=== PATIENT | female | born 1950 | race Caucasian/White ===

== ENCOUNTER 2020-07-19 20:12 | Inpatient (IN) | payer MEDICARE, MEDICAID ==
[~2020-07-19] VITALS: Ht 165.1 cm; Wt 130.6 kg
[2020-07-19 23:02] LABS: HEMATOCRIT. 28.1 % (36.0-48.0); HEMOGLOBIN. 8.7 g/dL (12.0-16.0); MEAN CORPUSCULAR HEMOGLOBIN 33.6 pg (28.0-32.0); MEAN CORPUSCULAR VOLUME 108.8 fL (81.0-99.0); PLATELET 307 x1000/uL (130-400); RED BLOOD CELL COUNT 2.59 mill/uL (4.2-5.4); RED CELL DISTRIBUTION WIDTH 18.8 % (11.6-14.6)
[2020-07-19 23:03] LABS: COLOR URINE DK YELLOW (YELLOW); KETONES URINE 1+ (NEGATIVE); LEUKOCYTE ESTERASE URINE NEGATIVE (NEGATIVE); NITRITE URINE NEGATIVE (NEGATIVE); OCCULT BLOOD URINE NEGATIVE (NEGATIVE); PROTEIN URINE 1+ (NEGATIVE); SPECIFIC GRAVITY URINE 1.024 (1.005-1.030)
[2020-07-19 23:04] LABS: CLARITY URINE SLIGHTLY HAZY (CLEAR)
[2020-07-19 23:29] LABS: PLATELET ESTIMATE NORMAL
[2020-07-19 23:59] LABS: CHLORIDE 109 mEq/L (98-107)
[2020-07-20 00:06] LABS: INR 1.2; PROTHROMBIN TIME 12.2 sec (9.6-11.0)
[2020-07-20 09:00] VITALS: BP 165/97
[2020-07-20] MEDS ORDERED: ACETAMINOPHEN 650MG SUPP PR PRN ×2 (09:15)
[2020-07-20] MEDS ORDERED: MAGNESIUM/ALUMINUM HYDROXIDE/SIMETHICONE 30ML UDC PO PRN (09:15)
[2020-07-20] MEDS ORDERED: NA PHOS,M-B/NA PHOS,DI-BA ENEMA 118ML PR PRN (09:15)
[2020-07-20] MEDS ORDERED: CLONIDINE 0.1MG TABLET PO PRN (09:15)
[2020-07-20] MEDS ORDERED: ACETAMINOPHEN 650MG/20.3ML UDC GT PRN ×2 (09:15)
[2020-07-20] MEDS ORDERED: DIPHENHYDRAMINE 50MG/ML VIAL IV PRN (09:15)
[2020-07-20] MEDS ORDERED: CLON0.1T MT (11:37)
[2020-07-20] MEDS ORDERED: CARV3.1242 MT (11:37)
[2020-07-20] MEDS ORDERED: HYDR-4133 MT (11:37)
[2020-07-20 12:00] VITALS: BP 115/70
[2020-07-20] MEDS ORDERED: ENOXAPARIN 40MG/0.4ML SYR SUBCUT SCH (14:00)
[2020-07-20] MEDS: MENTHOL/LANOLIN/CALAMINE/ZN OX OINT 71GM TOP SCH (14:06)
[2020-07-20] MEDS: LIDOCAINE 5% PATCH TOP SCH (14:08)
[2020-07-20] MEDS: ENOXAPARIN 30MG/0.3ML SYR SUBCUT SCH (14:09)
[2020-07-20] MEDS ORDERED: SODIUM CHLORIDE 0.9% 1000ML BAG (SEPSIS BOLUS) IV ONE (15:15)
[2020-07-20 16:00] VITALS: BP 146/79
[2020-07-20] MEDS ORDERED: SODIUM CHLORIDE 0.9% 500 ML IV NR (16:15)
[2020-07-20] MEDS: HYDROCODONE/ACETAMINOPHEN 10/325MG TABLET PO PRN ×2 (17:01→23:00)
[2020-07-20] MEDS ORDERED: VANCOMYCIN 2,000 MG in DEXT 5% WATER 500 ML IV NR ×2 (18:00→20:00)
[2020-07-20] MEDS ORDERED: PIPERACILLIN/TAZOBACTAM 2.25 G in DEXTROSE 5% WATER 50 ML IV SCH (18:00)
[2020-07-20] MEDS: PIPERACILLIN/TAZOBACTAM 3.375 G in DEXT 5% WATER 100 ML IV SCH (18:19)
[2020-07-20 20:00] VITALS: BP 149/71
[2020-07-20] MEDS: CARVEDILOL 6.25 MG TABLET PO SCH (20:28)
[2020-07-20] MEDS: ACETAMINOPHEN 325MG TABLET PO PRN (22:12)
[2020-07-21] VITALS: BP 123/76
[2020-07-21] MEDS: ENOXAPARIN 30MG/0.3ML SYR SUBCUT SCH (01:02)
[2020-07-21] MEDS: MENTHOL/LANOLIN/CALAMINE/ZN OX OINT 71GM TOP SCH ×2 (01:02→13:18)
[2020-07-21] MEDS: PIPERACILLIN/TAZOBACTAM 3.375 G in DEXT 5% WATER 100 ML IV SCH ×5 (01:02→23:30)
[2020-07-21 04:00] VITALS: BP 129/67
[2020-07-21 08:00] VITALS: BP 138/79
[2020-07-21] MEDS: LIDOCAINE 5% PATCH TOP SCH (08:39)
[2020-07-21] MEDS: CARVEDILOL 6.25 MG TABLET PO SCH ×2 (08:40→21:08)
[2020-07-21] MEDS: HYDROCODONE/ACETAMINOPHEN 10/325MG TABLET PO PRN ×2 (08:40→21:08)
[2020-07-21 12:00] VITALS: BP 138/66
[2020-07-21] MEDS ORDERED: IPRATROPIUM/ALBUTEROL 0.5-3(2.5)MG/3ML NEB HHN PRN (12:45)
[2020-07-21] MEDS: MULTIVITAMINS,THER W-MINERALS TABLET PO SCH (13:18)
[2020-07-21] MEDS: THIAMINE HCL 100MG TABLET PO SCH (13:18)
[2020-07-21] MEDS: FOLIC ACID/VITAMIN B COMP W-C TABLET PO SCH (13:18)
[2020-07-21] MEDS: VANCOMYCIN 1 G PREMIX 200 ML IV SCH (14:28)
[2020-07-21 16:00] VITALS: BP 113/86
[2020-07-21 17:34] LABS: BASOPHILS % 0.3 % (0.0-2.0); EOSINOPHILS % 1.2 % (0.0-5.0); LYMPHOCYTES % 9.9 % (20.0-50.0); MEAN CORPUSCULAR HEMOGLOBIN 33.3 pg (28.0-32.0); MEAN CORPUSCULAR VOLUME 108.4 fL (81.0-99.0); MEAN PLATELET VOLUME 8.6 fl (7.4-10.4); MONOCYTES % 13.3 % (2.0-8.0); NEUTROPHILS % 75.3 % (40.0-76.0); PLATELET 330 x1000/uL (130-400); RED BLOOD CELL COUNT 1.89 mill/uL (4.2-5.4); RED CELL DISTRIBUTION WIDTH 18.7 % (11.6-14.6)
[2020-07-21 17:36] LABS: CHLORIDE 107 mEq/L (98-107)
[2020-07-21 17:41] LABS: HEMATOCRIT. 20.5 % (36.0-48.0); HEMOGLOBIN. 6.3 g/dL (12.0-16.0)
[2020-07-21] MEDS ORDERED: ACETAMINOPHEN 325MG TABLET PO ONE (18:45)
[2020-07-21] MEDS ORDERED: DIPHENHYDRAMINE 25MG CAPSULE PO ONE (18:45)
[2020-07-21 20:00] VITALS: BP 154/81
[2020-07-21] MEDS ORDERED: VANCOMYCIN 1250MG in DEXTROSE 5% WATER 250ML IV SCH (20:00)
[2020-07-21] MEDS: IPRATROPIUM/ALBUTEROL 0.5-3(2.5)MG/3ML NEB HHN SCH (20:25)
[2020-07-21] MEDS: ENOXAPARIN 40MG/0.4ML SYR SUBCUT SCH (21:08)
[2020-07-22] VITALS (14 sets, daily range): BP systolic 114–139; BP diastolic 56–78
[2020-07-22] MEDS: VANCOMYCIN 1 G PREMIX 200 ML IV SCH ×2 (00:27→12:31)
[2020-07-22] MEDS: IPRATROPIUM/ALBUTEROL 0.5-3(2.5)MG/3ML NEB HHN SCH ×4 (01:40→21:33)
[2020-07-22] MEDS: ACETAMINOPHEN 325MG TABLET PO PRN (01:41)
[2020-07-22] MEDS: MENTHOL/LANOLIN/CALAMINE/ZN OX OINT 71GM TOP SCH ×2 (01:46→13:00)
[2020-07-22] MEDS: PIPERACILLIN/TAZOBACTAM 3.375 G in DEXT 5% WATER 100 ML IV SCH ×3 (08:20→21:23)
[2020-07-22] MEDS: MULTIVITAMINS,THER W-MINERALS TABLET PO SCH (08:20)
[2020-07-22] MEDS: CARVEDILOL 6.25 MG TABLET PO SCH ×2 (08:20→21:22)
[2020-07-22] MEDS: FOLIC ACID/VITAMIN B COMP W-C TABLET PO SCH (08:20)
[2020-07-22] MEDS: THIAMINE HCL 100MG TABLET PO SCH (08:21)
[2020-07-22] MEDS: ENOXAPARIN 40MG/0.4ML SYR SUBCUT SCH (09:00)
[2020-07-22] MEDS: LIDOCAINE 5% PATCH TOP SCH (09:06)
[2020-07-22] MEDS: HYDROCODONE/ACETAMINOPHEN 10/325MG TABLET PO PRN ×2 (10:48→18:44)
[2020-07-22 15:20] LABS: CHLORIDE 107 mEq/L (98-107)
[2020-07-22 16:51] LABS: BASOPHILS % 0.4 % (0.0-2.0); HEMATOCRIT. 26.7 % (36.0-48.0); HEMOGLOBIN. 8.8 g/dL (12.0-16.0); LYMPHOCYTES % 10.7 % (20.0-50.0); MEAN CORPUSCULAR HEMOGLOBIN 33.4 pg (28.0-32.0); MEAN CORPUSCULAR VOLUME 101.4 fL (81.0-99.0); MEAN PLATELET VOLUME 8.6 fl (7.4-10.4); MONOCYTES % 13.5 % (2.0-8.0); NEUTROPHILS % 74.4 % (40.0-76.0); PLATELET 333 x1000/uL (130-400); RED BLOOD CELL COUNT 2.63 mill/uL (4.2-5.4); RED CELL DISTRIBUTION WIDTH 19.1 % (11.6-14.6)
[2020-07-22] MEDS: DAPTOMYCIN 500 MG in SODIUM CHLORIDE 0.9% 50 ML IV SCH (21:00)
[2020-07-22] MEDS ORDERED: VANCOMYCIN 1250MG in DEXTROSE 5% WATER 250ML IV SCH (23:00)
[2020-07-23] VITALS: BP 128/78
[2020-07-23] MEDS: MENTHOL/LANOLIN/CALAMINE/ZN OX OINT 71GM TOP SCH ×2 (01:17→13:00)
[2020-07-23] MEDS: IPRATROPIUM/ALBUTEROL 0.5-3(2.5)MG/3ML NEB HHN SCH ×4 (01:54→19:58)
[2020-07-23 04:00] VITALS: BP 137/80
[2020-07-23] MEDS: PIPERACILLIN/TAZOBACTAM 3.375 G in DEXT 5% WATER 100 ML IV SCH ×4 (04:00→21:53)
[2020-07-23 08:00] VITALS: BP 141/83
[2020-07-23] MEDS: MULTIVITAMINS,THER W-MINERALS TABLET PO SCH (09:00)
[2020-07-23] MEDS: CARVEDILOL 6.25 MG TABLET PO SCH ×2 (09:09→21:53)
[2020-07-23] MEDS: FOLIC ACID/VITAMIN B COMP W-C TABLET PO SCH (09:09)
[2020-07-23] MEDS: THIAMINE HCL 100MG TABLET PO SCH (09:10)
[2020-07-23] MEDS: LIDOCAINE 5% PATCH TOP SCH (09:10)
[2020-07-23] MEDS ORDERED: LIDO700A30 TOP (10:40)
[2020-07-23] MEDS ORDERED: MENT71OI TOP (10:40)
[2020-07-23 13:00] LABS: HEMATOCRIT. 26.6 % (36.0-48.0); HEMOGLOBIN. 8.7 g/dL (12.0-16.0); MEAN CORPUSCULAR HEMOGLOBIN 33.7 pg (28.0-32.0); MEAN CORPUSCULAR VOLUME 102.8 fL (81.0-99.0); MEAN PLATELET VOLUME 8.1 fl (7.4-10.4); PLATELET 339 x1000/uL (130-400); RED BLOOD CELL COUNT 2.58 mill/uL (4.2-5.4); RED CELL DISTRIBUTION WIDTH 18.5 % (11.6-14.6)
[2020-07-23 13:20] LABS: CHLORIDE 106 mEq/L (98-107)
[2020-07-23] MEDS ORDERED: SODIUM BICARBONATE 4% (2.4MEQ) 5ML VIAL IV ONE (13:56)
[2020-07-23] MEDS ORDERED: LIDOCAINE HCL 1% 20ML VIAL (Pyxis) INJ ONE (13:57)
[2020-07-23 16:14] VITALS: BP 135/83
[2020-07-23 17:27] LABS: PLATELET ESTIMATE NORMAL
[2020-07-23] MEDS: HYDROCODONE/ACETAMINOPHEN 10/325MG TABLET PO PRN (18:18)
[2020-07-23 20:00] VITALS: BP 137/86
[2020-07-23] MEDS: DAPTOMYCIN 500 MG in SODIUM CHLORIDE 0.9% 50 ML IV SCH (20:29)
[2020-07-23] MEDS: ENOXAPARIN 40MG/0.4ML SYR SUBCUT SCH (21:55)
[2020-07-24] VITALS: BP 145/73
[2020-07-24] MEDS: HYDROCODONE/ACETAMINOPHEN 10/325MG TABLET PO PRN ×4 (00:53→20:52)
[2020-07-24] MEDS: MENTHOL/LANOLIN/CALAMINE/ZN OX OINT 71GM TOP SCH ×2 (01:02→13:33)
[2020-07-24] MEDS: IPRATROPIUM/ALBUTEROL 0.5-3(2.5)MG/3ML NEB HHN SCH ×4 (01:35→21:24)
[2020-07-24] MEDS: PIPERACILLIN/TAZOBACTAM 3.375 G in DEXT 5% WATER 100 ML IV SCH ×4 (03:05→21:03)
[2020-07-24 04:00] VITALS: BP 121/71
[2020-07-24 08:00] VITALS: BP 126/75
[2020-07-24] MEDS: FOLIC ACID/VITAMIN B COMP W-C TABLET PO SCH (09:00)
[2020-07-24] MEDS: THIAMINE HCL 100MG TABLET PO SCH (09:00)
[2020-07-24] MEDS: CARVEDILOL 6.25 MG TABLET PO SCH ×2 (09:00→20:51)
[2020-07-24] MEDS: MULTIVITAMINS,THER W-MINERALS TABLET PO SCH (09:00)
[2020-07-24] MEDS: LIDOCAINE 5% PATCH TOP SCH (09:01)
[2020-07-24] MEDS: ENOXAPARIN 40MG/0.4ML SYR SUBCUT SCH ×2 (09:04→20:51)
[2020-07-24] MEDS ORDERED: THIA50TA11 MT (11:16)
[2020-07-24 12:00] VITALS: BP 129/69
[2020-07-24 16:00] VITALS: BP 121/73
[2020-07-24 16:52] LABS: CREATINE KINASE 19 IU/L (26-192)
[2020-07-24 20:00] VITALS: BP 131/81
[2020-07-24] MEDS: DAPTOMYCIN 500 MG in SODIUM CHLORIDE 0.9% 50 ML IV SCH (21:56)
[2020-07-25] VITALS (7 sets, daily range): BP systolic 111–135; BP diastolic 57–85
[2020-07-25] MEDS: IPRATROPIUM/ALBUTEROL 0.5-3(2.5)MG/3ML NEB HHN SCH ×4 (01:48→20:55)
[2020-07-25] MEDS: PIPERACILLIN/TAZOBACTAM 3.375 G in DEXT 5% WATER 100 ML IV SCH ×3 (04:45→17:13)
[2020-07-25] MEDS: MENTHOL/LANOLIN/CALAMINE/ZN OX OINT 71GM TOP SCH ×2 (04:49→12:37)
[2020-07-25] MEDS: THIAMINE HCL 100MG TABLET PO SCH (09:40)
[2020-07-25] MEDS: FOLIC ACID/VITAMIN B COMP W-C TABLET PO SCH (09:40)
[2020-07-25] MEDS: MULTIVITAMINS,THER W-MINERALS TABLET PO SCH (09:40)
[2020-07-25] MEDS: LIDOCAINE 5% PATCH TOP SCH (09:41)
[2020-07-25] MEDS: CARVEDILOL 6.25 MG TABLET PO SCH (09:42)
[2020-07-25] MEDS: ENOXAPARIN 40MG/0.4ML SYR SUBCUT SCH (09:42)
[2020-07-25] MEDS: DAPTOMYCIN 500 MG in SODIUM CHLORIDE 0.9% 50 ML IV SCH (18:34)
== END 2020-07-25 22:30 | disposition home health service (06) | DRG 720 ==
LOC: ER 20:12 → EDBEDREQSVC 23:11 → EDBEDREQ 23:11 → EDBEDREQTM 23:11 → 7WST 07-20 00:20 → EDBEDREQDT 07-20 00:22 → EDBEDREQTM 07-20 00:22 → EDBEDREQ 07-20 00:22 → ENRESERV 07-20 07:59 → 8WST 07-21 11:31
PROVIDERS: ADMIT Family Medicine; ATTEND Family Medicine
PROC: 30233N1 Transfusion of Nonautologous Red Blood Cells into Peripheral Vein, Percutaneous Approach (ICD-10-PCS; principal; 2020-07-22)
PROC: 02HV33Z Insertion of Infusion Device into Superior Vena Cava, Percutaneous Approach (ICD-10-PCS; 2020-07-23)
PROC: B548ZZA Ultrasonography of Superior Vena Cava, Guidance (ICD-10-PCS; 2020-07-23)
DX: A41.02 Sepsis due to Methicillin resistant Staphylococcus aureus (principal); S52.125A Nondisplaced fracture of head of left radius, initial encounter for closed fracture; J96.20 Acute and chronic respiratory failure, unspecified whether with hypoxia or hypercapnia; E44.0 Moderate protein-calorie malnutrition; J44.9 Chronic obstructive pulmonary disease, unspecified; M19.012 Primary osteoarthritis, left shoulder; I10 Essential (primary) hypertension; R26.9 Unspecified abnormalities of gait and mobility; D63.8 Anemia in other chronic diseases classified elsewhere; E66.01 Morbid (severe) obesity due to excess calories; F10.10 Alcohol abuse, uncomplicated; J98.11 Atelectasis; L85.3 Xerosis cutis; M00.9 Pyogenic arthritis, unspecified; E11.51 Type 2 diabetes mellitus with diabetic peripheral angiopathy without gangrene; W18.39XA Other fall on same level, initial encounter; Z20.828 Contact with and (suspected) exposure to other viral communicable diseases; Y93.89 Activity, other specified; L98.499 Non-pressure chronic ulcer of skin of other sites with unspecified severity; Z99.81 Dependence on supplemental oxygen; Z68.42 Body mass index [BMI] 45.0-49.9, adult; Z87.891 Personal history of nicotine dependence; Y92.89 Other specified places as the place of occurrence of the external cause; Y99.8 Other external cause status; Z79.899 Other long term (current) drug therapy; M14.672 Charcot's joint, left ankle and foot; M14.671 Charcot's joint, right ankle and foot; E11.621 Type 2 diabetes mellitus with foot ulcer; M21.00 Valgus deformity, not elsewhere classified, unspecified site; R53.2 Functional quadriplegia
CPT/HCPCS: 36415; 36573; 71045; 73030; 73060; 73080; 73110; 73200; 73630; 76937; 80053; 80202; 81003; 82550; 82607; 82668; 82746; 83605; 84145; 84443; 84484; 84550; 85025; 86140; 86850; 86900; 86920; 87077; 87635; 93005; 93306; 93923; 94640; 97022; 97162; 99291; C1725; J0878; J1650; J2543; J3370; J3490; J7060; P9016

== ENCOUNTER 2022-02-10 20:21 | Inpatient (IN) | payer MEDICARE, MEDICAID ==
[~2022-02-10] VITALS: Ht 167.6 cm; Wt 99.3 kg
[~2022-02-10 20:21] MED LIST: CARV3.1242 MT; THIA50TA12 MT
[2022-02-10] MEDS ORDERED: CEFTRIAXONE 1 G PREMIX 50 ML IV ONE (22:00)
[2022-02-10] MEDS ORDERED: TETANUS, DIPHTHERIA, PERTUSSIS VAC/PF 0.5ML (>10YR OLD) IM ONE (22:00)
[2022-02-10 22:37] LABS: HEMATOCRIT. 24.4 % (36.0-48.0); HEMOGLOBIN. 8.3 g/dL (12.0-16.0); MEAN CORPUSCULAR HEMOGLOBIN 35.8 pg (28.0-32.0); MEAN CORPUSCULAR VOLUME 105.3 fL (81.0-99.0); MEAN PLATELET VOLUME 8.7 fl (7.4-10.4); PLATELET 379 x1000/uL (130-400); RED BLOOD CELL COUNT 2.32 mill/uL (4.2-5.4)
[2022-02-10 22:42] LABS: CHLORIDE 106 mEq/L (98-107)
[2022-02-10 22:55] LABS: PLATELET ESTIMATE NORMAL
[2022-02-11] MEDS ORDERED: VANCOMYCIN 1G PREMIX 200 ML IV SCH (00:45)
[2022-02-11] MEDS ORDERED: MORPHINE SULFATE 4 MG/ML CPJ (NOT FOR IM USE) IV ONE ×2 (00:45→02:45)
[2022-02-11] MEDS ORDERED: DILTIAZEM HCL 5MG/ML 5ML VIAL IV ONE ×2 (00:45→01:30)
[2022-02-11] MEDS ORDERED: DILTIAZEM HCL 125 MG in DEXT 5% WATER 100 ML IV ONE (02:45)
[2022-02-11] MEDS ORDERED: DILTIAZEM 125MG/125ML PMX 100 ML IV NR ×2 (02:45→15:15)
[2022-02-11] MEDS ORDERED: FUROSEMIDE 40MG/4ML VIAL IVP ONE (04:45)
[2022-02-11] MEDS ORDERED: GUAIFENESIN 200MG/10ML SUGAR FREE UDC PO PRN (06:00)
[2022-02-11] MEDS ORDERED: ACETAMINOPHEN 325MG TABLET PO PRN (06:00)
[2022-02-11] MEDS ORDERED: DOCUSATE SODIUM 100MG CAPSULE PO PRN (06:00)
[2022-02-11] MEDS ORDERED: MAGNESIUM/ALUMINUM HYDROXIDE/SIMETHICONE 30ML UDC PO PRN (06:00)
[2022-02-11] MEDS ORDERED: ONDANSETRON HCL 4MG/2ML INJ IV PRN (06:00)
[2022-02-11] MEDS ORDERED: LORAZEPAM 0.5MG TABLET PO PRN (06:00)
[2022-02-11] MEDS ORDERED: CLONIDINE 0.1MG TABLET PO PRN (06:00)
[2022-02-11] MEDS ORDERED: NA PHOS,M-B/NA PHOS,DI-BA ENEMA 118ML PR PRN (06:00)
[2022-02-11] MEDS: DEXT 5%/0.45% NACL 1000ML 1,000 ML IV SCH ×2 (06:18→23:24)
[2022-02-11] MEDS ORDERED: DIGOXIN 500MCG/2ML AMP IV SCH ×2 (08:30→11:45)
[2022-02-11] MEDS: ENOXAPARIN 30MG/0.3ML SYR SUBCUT SCH ×2 (11:44→22:00)
[2022-02-11 17:45] VITALS: BP 114/73
[2022-02-11 18:00] VITALS: BP 117/75
[2022-02-11 18:15] VITALS: BP 123/63
[2022-02-11] MEDS ORDERED: NALOXONE HCL 0.4MG/ML VIAL IV PRN (18:15)
[2022-02-11] MEDS: DIGOXIN 500MCG/2ML AMP IV SCH (18:17)
[2022-02-11 18:30] VITALS: BP 121/70
[2022-02-11 20:00] VITALS: BP_SYST 100; BP_SYST 116; BP_DIAS 61; BP_DIAS 71
[2022-02-11] MEDS: VANCOMYCIN 1G PREMIX 200 ML IV SCH (20:24)
[2022-02-11 22:00] VITALS: BP 109/59
[2022-02-12] VITALS (14 sets, daily range): BP systolic 93–130; BP diastolic 56–84
[2022-02-12] MEDS: MORPHINE SULFATE 2 MG/ML CPJ (NOT FOR IM USE) IV PRN ×4 (03:49→23:34)
[2022-02-12] MEDS: ENOXAPARIN 30MG/0.3ML SYR SUBCUT SCH ×2 (08:32→22:34)
[2022-02-12] MEDS ORDERED: HYDROMORPHONE HCL/PF 2MG/ML CPJ IV PRN (12:15)
[2022-02-12] MEDS: VANCOMYCIN 1G PREMIX 200 ML IV SCH (13:00)
[2022-02-12] MEDS: DILTIAZEM HCL 30MG TABLET PO SCH ×3 (13:01→23:32)
[2022-02-12] MEDS: DEXT 5%/0.45% NACL 1000ML 1,000 ML IV SCH (15:31)
[2022-02-12] MEDS: DIGOXIN 500MCG/2ML AMP IV SCH (17:19)
[2022-02-13] VITALS (12 sets, daily range): BP systolic 86–119; BP diastolic 48–75
[2022-02-13] MEDS: DILTIAZEM HCL 30MG TABLET PO SCH ×3 (04:55→17:39)
[2022-02-13] MEDS: MORPHINE SULFATE 2 MG/ML CPJ (NOT FOR IM USE) IV PRN (04:56)
[2022-02-13 08:33] LABS: CHLORIDE 110 mEq/L (98-107)
[2022-02-13] MEDS: ENOXAPARIN 30MG/0.3ML SYR SUBCUT SCH ×2 (08:33→21:00)
[2022-02-13] MEDS: DEXT 5%/0.45% NACL 1000ML 1,000 ML IV SCH (08:33)
[2022-02-13] MEDS: VANCOMYCIN 1G PREMIX 200 ML IV SCH (08:33)
[2022-02-13] MEDS: DIGOXIN 500MCG/2ML AMP IV SCH (17:38)
[2022-02-14] VITALS (11 sets, daily range): BP systolic 90–143; BP diastolic 45–87
[2022-02-14] MEDS: DILTIAZEM HCL 30MG TABLET PO SCH ×5 (00:12→23:33)
[2022-02-14] MEDS: ENOXAPARIN 30MG/0.3ML SYR SUBCUT SCH ×2 (08:12→21:51)
[2022-02-14] MEDS ORDERED: VANCOMYCIN 1GM PMX (XELLIA) 200 ML IV SCH (10:00)
[2022-02-14] MEDS: DEXT 5%/0.45% NACL 1000ML 1,000 ML IV SCH (17:20)
[2022-02-14] MEDS ORDERED: DIGOXIN 125MCG TABLET PO SCH (18:00)
[2022-02-15] VITALS (7 sets, daily range): BP systolic 100–130; BP diastolic 55–76
[2022-02-15] MEDS: HYDROCODONE/ACETAMINOPHEN 5/325MG TABLET PO PRN ×2 (04:02→09:10)
[2022-02-15] MEDS: DILTIAZEM HCL 30MG TABLET PO SCH ×2 (05:28→14:44)
[2022-02-15] MEDS: DEXT 5%/0.45% NACL 1000ML 1,000 ML IV SCH (09:08)
[2022-02-15] MEDS: ENOXAPARIN 30MG/0.3ML SYR SUBCUT SCH (09:10)
[2022-02-15] MEDS ORDERED: LIDOCAINE HCL 1% 10 MG/ML 10ML VIAL ONE ×2 (10:43→14:06)
[2022-02-15] MEDS ORDERED: SULFAMETHOXAZOLE/TRIMETHOPRIM 400/80MG TAB PO SCH (14:30)
[2022-02-15] MEDS ORDERED: DILTIAZEM HCL 60MG TABLET PO SCH (22:00)
== END 2022-02-15 18:34 | DRG 201 ==
LOC: ER 20:21 → MICUSO 02-11 04:39 → 5EST 02-11 18:03
PROVIDERS: ADMIT Hospitalist; ATTEND Hospitalist
PROC: 0HQ0XZZ Repair Scalp Skin, External Approach (ICD-10-PCS; principal; 2022-02-11)
DX: I48.91 Unspecified atrial fibrillation (principal); I50.43 Acute on chronic combined systolic (congestive) and diastolic (congestive) heart failure; E43 Unspecified severe protein-calorie malnutrition; L89.159 Pressure ulcer of sacral region, unspecified stage; I13.0 Hypertensive heart and chronic kidney disease with heart failure and stage 1 through stage 4 chronic kidney disease, or unspecified chronic kidney disease; I74.09 Other arterial embolism and thrombosis of abdominal aorta; K94.23 Gastrostomy malfunction; E88.09 Other disorders of plasma-protein metabolism, not elsewhere classified; S09.90XA Unspecified injury of head, initial encounter; L03.119 Cellulitis of unspecified part of limb; Z99.81 Dependence on supplemental oxygen; G47.33 Obstructive sleep apnea (adult) (pediatric); Z86.73 Personal history of transient ischemic attack (TIA), and cerebral infarction without residual deficits; G40.909 Epilepsy, unspecified, not intractable, without status epilepticus; M14.671 Charcot's joint, right ankle and foot; M14.672 Charcot's joint, left ankle and foot; W06.XXXA Fall from bed, initial encounter; D64.9 Anemia, unspecified; F17.210 Nicotine dependence, cigarettes, uncomplicated; M19.90 Unspecified osteoarthritis, unspecified site; Z20.822 Contact with and (suspected) exposure to COVID-19; R53.81 Other malaise; S01.01XA Laceration without foreign body of scalp, initial encounter; I49.3 Ventricular premature depolarization; J44.9 Chronic obstructive pulmonary disease, unspecified; E66.01 Morbid (severe) obesity due to excess calories; Y93.89 Activity, other specified; Z87.81 Personal history of (healed) traumatic fracture; Z79.899 Other long term (current) drug therapy; Y92.89 Other specified places as the place of occurrence of the external cause; Y99.8 Other external cause status
CPT/HCPCS: 36415; 71045; 72128; 72131; 72170; 73552; 80048; 80053; 80202; 83605; 83880; 84484; 85025; 87186; 87426; 90715; 93005; 93306; 99285; A6261; J0696; J1160; J1170; J1650; J2270; J3370; J3490; J7060